=== PATIENT | male | born 1950 | race Caucasian/White ===

== ENCOUNTER 2022-08-03 07:41 | Inpatient (IN) | payer MEDICARE ==
[~2022-08-03] VITALS: Ht 188 cm; Wt 117.3 kg
--- NOTE | ~2022-08-03 | DS ---
[facility] [address], [place] [address] Draft ADMISSION DATE: 08/03/2022 DISCHARGE DATE: 08/05/2022 REASON FOR ADMISSION: Acute appendicitis with generalized peritonitis. HISTORY OF PRESENT ILLNESS: This 71-year-old white man has had 24 hours of increasing abdominal pain. He was evaluated in the emergency room by Dr. Shearer including clinical examination showing a "rigid abdomen" with tenderness focally in the right lower quadrant. A CT confirmed probable appendicitis. LABORATORY DATA: Normal though white count was 11.4. Creatinine was elevated at 1.36. COVID serology and flu serologies were negative. PERTINENT PHYSICAL EXAMINATION: GENERAL: Showed a large white man, BMI 33.2. HEENT: Mucous membranes were markedly dry. Trachea midline. CHEST: Clear. HEART: Regular. ABDOMEN: Nondistended. He had marked tenderness in the right lower quadrant, consistent with peritonitis. A CT scan showed findings suggestive of appendicitis with periappendiceal stranding and dilated inflamed appendix. HOSPITAL COURSE: He was given fluid resuscitation, IV antibiotics and taken to operation promptly. Found was severe generalized abdominal peritonitis with purulent discharge throughout the abdomen as well as perforated appendicitis. Laparoscopic peritoneal lavage was undertaken as well as appendectomy which was prolonged, complicated, and difficult. A foot drain was placed as well. Postoperatively, he was maintained on Levaquin and Flagyl orally administered. He had prompt improvement of his symptoms clinically. By day of discharge, the drain had been placed was clear and was removed. He will be discharged home with five days of antibiotics as outpatient. He is advised to lift no more than 20 pounds for the next two weeks. He will keep Steri-Strips on. He is permitted to shower tomorrow. DISCHARGE MEDICATIONS: PATIENT NAME: KAIA SERNA DISCHARGE SUMMARY DATE OF : 50 REPORT #: [id number] PHYSICIAN: FRANKLYN OWENS MD PCP: SANDY TORRE MD REPORT IS CONFIDENTIAL AND NOT TO BE RELEASED WITHOUT AUTHORIZATION [facility] [address], [place] [address] Draft 1. Levaquin 500 mg p.o. at bedtime #5. 2. Flagyl 250 mg p.o. t.i.d. #15. 3. Oxycodone Tylenol 7.5/325 one to two p.o. q.6 hours p.r.n. pain #6. 4. Tylenol plain 500 mg tablets two tablets p.o. q.6 hours as needed for lesser pain #60. He will continue with his usual medications including cyclobenzaprine, low-dose aspirin, vitamin C, niacin, tablet, colestipol, and tamsulosin. DISCHARGE DIAGNOSES: 1. Acute perforated appendicitis with generalized peritonitis, status post laparoscopic appendectomy, prolonged complicated difficult and placement of drain, August 03, 2022. 2. Obesity. 3. Benign prostatic hypertrophy symptoms. FOLLOWUP PLANS: He will return to see me in four weeks. If he has problems in the meantime, he will let me know. MD INGRIS Lugo/LANAL /[id number] cc: Dr. Shira Shearer Copies: ~ PATIENT NAME: KAIA SERNA Ponce DISCHARGE SUMMARY DATE OF : 50 REPORT #: [id number] PHYSICIAN: FRANKLYN OWENS MD PCP: SANDY TORRE MD REPORT IS CONFIDENTIAL AND NOT TO BE RELEASED WITHOUT AUTHORIZATION
--- NOTE | ~2022-08-03 | OR ---
[facility] [address], [place] [address] Draft DATE OF OPERATION: 08/03/2022 SURGEON: Franklyn Owens MD PREOPERATIVE DIAGNOSES: 1. Acute peritonitis with probable appendicitis. 2. Obesity. POSTOPERATIVE DIAGNOSES: 1. Generalized severe peritonitis with purulent discharge throughout abdomen. 2. Perforated appendicitis. 3. Obesity. PROCEDURES PERFORMED: 1. Laparoscopy with peritoneal lavage and placement of drain. 2. Laparoscopic appendectomy; prolonged, complicated, and difficult. ANESTHESIA: General endotracheal with Franklyn Guidry CRNA; and local 10 mL of 0.25% Marcaine with epinephrine. INDICATION FOR PROCEDURE: This 71-year-old white man, is a patient DrYas Torre and evaluated today by Dr. Frankie Painter, emergency room physician, with approximately 24 hours of severe abdominal pain, most markedly noted to be tender in the right lower quadrant. A CT scan was performed under the direction of Dr. Painter confirming a dilated inflamed appendix with periappendiceal stranding. There is no sign of free air proper. The patient has exquisite tenderness throughout, most dominantly at McBurney's point. He had been fluid resuscitated, given intravenous antibiotic cefoxitin, and now to undergo appendectomy, preferred by laparoscopic approach. The risks of bleeding, infection, need for open procedure, and need for other indicated procedures as well as risk of injury to other surrounding organs was reviewed in detail. He understands and wished to proceed. FINDINGS: Generalized peritonitis, was quite marked. He had purulent discharge in the right pericolic gutter. Ultimately, he was found to have perforated appendicitis at the distal third of the appendix bulbous and markedly inflamed with a discrete perforation in it. The more proximal appendix was normal. Cecum itself was secondarily inflamed. Small bowel loops were inflamed, but without sign of primary pathology themselves. The liver itself was encumbered with adhesions, which were taken down. There was surgical PATIENT NAME: KAIA SERNA OPERATIVE REPORT DATE OF : 50 REPORT #: [id number] PHYSICIAN: FRANKLYN OWENS MD PCP: CHARI TORRE MD REPORT IS CONFIDENTIAL AND NOT TO BE RELEASED WITHOUT AUTHORIZATION [facility] [address], [place] [address] Draft absence of the gallbladder and omental adhesions very densely adherent to the subhepatic space and obscuring completely the duodenum. There was no known perforated duodenal ulcer or other similar cause of his peritonitis. DESCRIPTION OF PROCEDURE: The patient was brought to the operating room and given a general endotracheal anesthetic. Preoperative antibiotic cefoxitin had been given. Sequential compression device stockings used and heparin subcutaneously administered. Pepcid had been administered as well. After satisfactory general endotracheal anesthesia, a Donohue catheter was placed (latex-free). A small 14-Icelandic catheter was used as he was considered to have benign prostatic hypertrophy. Position placement was undertaken at the request of the nurses. No impediment to passage of the catheter was noted. Clear yellow urine was noted. The abdomen was clipped and prepared with a chlorhexidine solution and draped sterilely. He had a circumumbilical incision from prior hernia repair. A supraumbilical incision was made and using an open Lawanda cannula technique, the abdomen was entered without problem. Intra-abdominal inspection showed generalized peritonitis with some bowel loops quite markedly inflamed and purulent discharge distributed most dominantly in the right pericolic gutter and elsewhere. A 12 mm port was placed in the midepigastric area based on local anatomic findings and the camera replaced to that site. It was quite unclear exactly where the appendix was or the cecum, the bowel loops were somewhat matted together. A 5 mm suprapubic port was placed and using 2-hand manipulation, small bowel loops were manipulated from the inflammatory exudate laterally. The table was placed in head-down and [id number] position and subsequently manipulated to a more of a head-up position. Irrigation was undertaken with the suction device allowing for clearance of purulent material, turbidity, and so forth. The cecum was ultimately identified. It was somewhat nondescript in its appearance with inflammatory change. Initial perception of the appendix somewhat lateral to the cecum was noted and as it turned out, it appeared to be a peritoneal fold, which was dissected free and clearly after bit of dissection was misapprehended as the appendix itself. Re-inspection of the small bowel in relation to the cecum ultimately defined what was the origin of the appendix at the coalescence of the teniae epiploica. This was quite clearly at that point the appendix. The more proximal portion though secondarily inflamed was not markedly dilated. Using blunt and electrocautery dissection, a window was created between the appendix and mesoappendix, and a stapling device applied across the base of the appendix flush with the cecum. Sequential elevation of the appendix and dissection of the mesoappendix was undertaken dominantly with electrocautery. A PATIENT NAME: KAIA SERNA OPERATIVE REPORT DATE OF : 50 REPORT #: [id number] PHYSICIAN: FRANKLYN OWENS MD PCP: CHARI TORRE MD REPORT IS CONFIDENTIAL AND NOT TO BE RELEASED WITHOUT AUTHORIZATION [address] [address] Draft dominant vascular pedicle was secured with an Endo JIMBO stapling device freeing the appendix entirely. A bulbous distal portion was noted and close inspection showed area of perforation, no doubt accounting for his generalized peritonitis. Irrigation was undertaken in the area. There was no sign of ongoing bleeding or other problem. Re-inspection of the retro or pericecal area was undertaken again showing no entry to the retroperitoneum proper. No likely injury to the surrounding structures. Given the extensive nature of peritonitis, mucopurulent exudate, and so forth, mindful of his symptoms only being significant for the past 24 hours, evaluation was undertaken for other competing etiologies. Inspection superiorly showed omental adhesions to the undersurface of the liver. These were taken down bluntly as much as could be filling the omentum in the gallbladder fossa. There was fusion of the omentum to the periduodenal area and quite unlikely to have a finding of duodenal perforation or anything of that sort. Further dissection of the dense adhesions in the area of the lesser sac was not pursued as there was no sign of acute inflammatory change and only chronic adhesive change. Irrigation was undertaken throughout the peritoneal cavity. Once the turbid fluid was completely clear, a 7 mm flat Dano drain was insinuated through the suprapubic port site and manipulated to the right pericolic gutter. It was secured to the skin with nylon suture. Excess irrigation fluid was suctioned free. The trocars were removed under direct visualization showing no sign of bleeding. The infraumbilical fascial incision was re-approximated with interrupted 0 Vicryl suture. The epigastric port was similarly re-approximated. 10 mL of 0.25% Marcaine with epinephrine was injected locally. The skin was closed with interrupted 3-0 Vicryl and Steri-Strips were applied. The patient tolerated the procedure well. It was prolonged, complicated, and difficult, lasting greater than 2 hours, which is probably 6 times longer than usual. MD INGRIS Lugo/JUAN JOSE /[id number] cc: Frankie Painter MD PATIENT NAME: KAIA SERNA OPERATIVE REPORT DATE OF : 50 REPORT #: [id number] PHYSICIAN: FRANKLYN OWENS MD PCP: CHARI TORRE MD REPORT IS CONFIDENTIAL AND NOT TO BE RELEASED WITHOUT AUTHORIZATION [facility] [address], [place] [address] Chari Torre Copies: FRANKIE PAINTER MD ~ PATIENT NAME: KAIA SERNA OPERATIVE REPORT DATE OF : 50 REPORT #: [id number] PHYSICIAN: FRANKLYN OWENS MD PCP: CHARI TORRE MD REPORT IS CONFIDENTIAL AND NOT TO BE RELEASED WITHOUT AUTHORIZATION
--- NOTE | ~2022-08-03 | HP ---
[facility] [address], [place] [address] Draft ADMISSION DATE: 08/03/2022 REASON FOR ADMISSION: Acute appendicitis. HISTORY OF PRESENT ILLNESS: This 71-year-old white man has had approximately 24 hours of significant increasing right lower abdominal pain. He was evaluated thoroughly by Dr. Painter this morning in the emergency room showing peritonitis and a "rigid abdomen" with tenderness focally in the right lower quadrant. Evaluation included a CT scan confirming probable appendicitis. Lab studies are reasonably normal with a white count of only 11.4, hematocrit is 47.6 with platelets of 173,000. Chem profile showed a creatinine elevated at 1.36, glucose 122. Liver enzymes are normal. Lipase normal at 55. COVID serology is still pending. Urinalysis is pending as well. PAST MEDICAL HISTORY: Includes prior history of cholecystectomy in 2013. He has undergone colonoscopy in the past as well. He underwent incisional hernia repair in the past as well. SOCIAL HISTORY: Lives in [place]. He is . He previously worked at the [employer]. REVIEW OF SYSTEMS: He denies any shortness of breath or chest pain. Does feel thirsty. He has no cough. He has had no blood per rectum or hematemesis. PHYSICAL EXAMINATION: GENERAL: Relatively large white man who does not look systemically toxic, though he is uncomfortable. HEENT: Mucous membranes are markedly dry. NECK: Trachea is midline. CHEST: Clear. HEART: Regular. ABDOMEN: Nondistended. He has marked tenderness in the right lower quadrant. EXTREMITIES: Show no clubbing, cyanosis, or edema. Review of the CT scan shows findings highly suggestive of appendicitis with periappendiceal stranding and inflammation of the somewhat dilated appendix. There is no sign of fecalith. ASSESSMENT: PATIENT NAME: KAIA SERNA HISTORY AND PHYSICAL DATE OF : 50 REPORT #: [id number] PHYSICIAN: FRANKLYN OWENS MD PCP: SANDY TORRE MD REPORT IS CONFIDENTIAL AND NOT TO BE RELEASED WITHOUT AUTHORIZATION [facility] [address], [place] [address] Draft The patient has probable appendicitis and I have recommended appendectomy. Nonoperative approaches are unsuitable in this situation in my opinion. The risk of bleeding, infection, need for open procedure instead of a laparoscopic one and missed diagnosis and failure of diagnosis and need for other indicated procedures was reviewed in detail. He understands and wishes to proceed. In the meantime, we will additionally fluid resuscitate, give antibiotics, pain medicine, and so on. MD INGRIS Lugo/MODL /[id number] cc: Dr. Shira Painter MD Copies: BERTRAM PAINTER MD ~ PATIENT NAME: KAIA SERNA HISTORY AND PHYSICAL DATE OF : 50 REPORT #: [id number] PHYSICIAN: FRANKLYN OWENS MD PCP: SANDY TORRE MD REPORT IS CONFIDENTIAL AND NOT TO BE RELEASED WITHOUT AUTHORIZATION
[~2022-08-03 07:41] MED LIST: LANSOPRAZOLE30 MG PO; PERCOCET 7.5-31 EACH PO; PIROXICAM20 MG PO; TERBINAFINE HC250 MG PO
[2022-08-03] MEDS ORDERED: CYCLOBENZAPRINE10 MG PO (08:00)
[2022-08-03] MEDS ORDERED: ADULT LOW DOSE81 MG PO (12:20)
[2022-08-03] MEDS ORDERED: VITAMIN C100 MG PO (12:20)
[2022-08-03] MEDS ORDERED: ZINC50 M2 PO (12:21)
[2022-08-03] MEDS ORDERED: NIACIN ER500 MG PO (12:21)
[2022-08-03] MEDS ORDERED: COLESTID1 GM PO (12:22)
--- NOTE | 2022-08-03 17:13 | NUR ---
08/03/22 1713 Lore Metz 1659- PT ARRIVES TO PACU NONAROUSABLE TO STIMULI WITH AN OPA IN PLACE. RESP EVEN AND TACHYPNEIC. PT IS IN A SINUS RHYTHM WITH PAC'S. GRID INSPECTOR AWARE AND STATES THE PT HAS BEEN IN THIS RHYTHM. OXYGEN SAT LOW TO MID 90'S ON 10L VIA MASK. SYSTOLIC BP IS IN THE 80'S. GRID INSPECTOR AWARE. GIVING MEDICATIONS. 1705- PT'S OXYGEN SAT READING IN THE LOW 90'S ON 10L VIA MASK. LUNG BAE ARE CLEAR THROUGHOUT. EAR OXIMETER PLACED. OXYGEN SAT READING IN THE HIGH 90'S ON 10L VIA MASK.
--- NOTE | 2022-08-03 18:30 | NUR ---
PT TO [facility] VIA BED ALERT AND ORIENTED, AWAKE ANSWERING QUESTIONS APPROPRIATELY. SCDS IN PLACE FRESH H20 PROVIDED, PT TOLERATING SIPS. PERSONAL ITEMS IN REACH PT WEARING GLASSES. ORIENTED TO ROOM AND CALL LIGHT. GRACIELA HAS SMALL AMOUNT OF SEROSANG FLUID, STERI STRIP ON INCISIONAL SITES INTACT, SMALL AMOUNT OF DRAINAGE PRESENT. PT WEARING 02 2LPM NC SATS 94% ON PULSE OX
--- NOTE | 2022-08-03 19:23 | NUR ---
PT TOLERATING CLEAR LIQUIDS REMAINS AWAKE AND ALERT. SATS MID 90'S 02 DC'D.
--- NOTE | 2022-08-03 19:51 | NUR ---
PATIENT RESTING IN BED, NO DISTRESS NOTED. PATIENT REPORTS HIS PAIN IS 3/10 INCISION SITES, WHICH HE REPORTS IS TOLERABLE. ABD INCISIONS ARE CLOSED, SC AMOUNT OF DRAINAGE NOTED TO MID LOWER GRACIELA SITE. GRACIELA DRAINING DILUTE PINK COLO DRAINAGE-NO BLOOD CLOTS NOTED. CONT CPOX INTACT, SP02 95% ON ROOM AIR. NO CURRENT NEEDS. IV SITE PATENT.
--- NOTE | 2022-08-03 19:56 | NUR ---
PHONE CALL FROM pt'S . TRANSFERRED PHONE CALL TO ROOM. DIRECTOR OF SAFETY AND SECURITY IN ROOM TO ASSIST pt.
--- NOTE | 2022-08-03 20:26 | NUR ---
ADMIN DILAUDID 0.5MG IV FOR REPORTED 5/10 ABDOMINAL PAIN.
--- NOTE | 2022-08-03 23:30 | NUR ---
PATIENT RESTING IN BED, EYES CLOSED, RESPIRATIONS EVEN AND NON LABORED. PATIENT IS ON ROOM AIR, SP02 94% PER CONT CPOX MONITOR. IV FLUIDS INFUSING PER PROVIDER ORDER, IV SITE PATENT TO RIGHT HAND. NO CURRENT NEEDS, PERSONAL SUPPLIES AND CALL LIGHT WITHIN REACH OF PATIENT.
--- NOTE | 2022-08-04 00:02 | NUR ---
ADMINISTERED TORADOL 30MG IV FOR REPORTED 5/10 ABD PAIN.
--- NOTE | 2022-08-04 03:00 | NUR ---
REPORT RECEIVED FROM BRAYDEN DEGROOT. PT RESTING IN BED WITH EYES CLOSED, HEAD OF BED ELEVATED TO 20 DEGREES. BED RAILS UP. CALL LIGHT WITHIN REACH. PT ALLOWED TO REST.
--- NOTE | 2022-08-04 04:20 | NUR ---
THIS RN TO ROOM TO CHECK ON PT. PT AWAKEN AND FIGITING WITH SHEETS. PT REPORTS HE HAS WET THE BED. PT UP TO SIT AT BEDSIDE AND USE URINAL. LINENS CHANGED. PT UP TO STAND AND IS VERY UNSTEADY ON FEET. ANABEL CARE DONE. PT ASSISTED WITH REPOSITIONING IN BED. BED RAILS UP. CALL LIGHT WITHIN REACH. PT ENCORUAGED TO REST. BED ALARM ON
--- NOTE | 2022-08-04 05:29 | NUR ---
THIS RN TO BED TO CHECK ON PT. LAB AT BEDSIDE DRAWING LABS. PT DENIES PAIN AND NASUEA. PT DENIES ADDITIONAL REQUESTS OR COMPLAINTS. OXGYEN SATURATIONS 96% ON ROOM AIR. CALL LIGHT WITHIN REACH. BED RAILS UP. BED ALARM ON.
--- NOTE | 2022-08-04 08:56 | NUR ---
MORNING ASSESSMENT AND MEDICATION DUE. PT RESTING IN BED ABOUT TO EAT BREAKFAST. PT ENCORUAGED TO GET UP TO CHAIR. PT UP TO CHAIR WITH STAND BY ASSIST. BMAT LEVEL 3 FOR LINE AND TUBE MANAGEMENT. PT STEADY ON FEET. PT REPORTS 0/10 ABDOMINAL PAIN AND 4/10 HEADACHE. PT REQUESTS PAIN MEDICATION FOR HEADACHE, SEE MAR FOR MEDICATION GIVEN. PT ALERT AND ORIENTED TO ALL. LUNG SOUNDS CLEAR. HEART TONES REGULAR. +1 EDEMA NOTED TO LEFT LOWER EXTREMITY. 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 ABDOME FIRM ON LEFT SIDE, TENDER TO TOUCH IN PLACES. HYPOACTIVE BOWEL TONES HEARD. LARPAROSCOPIC SITES WNL. STERI STRIPS INTACT. GRACIELA DRAIN DRAINING SEROUSANGUINOUS FLUID, EMPITED OF 70ML. NO NEW DRAINAGE NOTED FROM LAPAROSCOPIC SITES. PT EATING CLEAR LIQUIDS, TOLERATING WELL. NO ADDIITONAL REQUESTS OR COMPLAINTS. CALL LIGHT WITHIN REACH.
--- NOTE | 2022-08-04 09:55 | NUR ---
HOURLY ROUNDING, PT CALL LIGHT ON. PT REQUESTS ASSISTANCE UP TO RESTROOM. PT VOIDS 250ML WITH OUT ISSUE. STAND BY ASSIST UP TO RESTROOM FOR LINE AND TUBE MANAGEMENT. ANABEL CARE PER PT. PTS ESHA TO BEDSIDE, UPDATED ON PT STATUS AND PLAN OF CARE. PT VISITNG WITH AND WATCHING TV. PT REPORTS HEADACHE HAS RESOLVED. PT DENIES ABDOMINAL PAIN. NO ADDITIONAL REQUESTS OR COMPLAINTS. CALL LIGHT WITHIN REACH.
--- NOTE | 2022-08-04 10:30 | NUR ---
THIS RN TO ROOM TO CHECK ON PT. PT REMAINS UP TO CHAIR, VISITING WITH FAMILY. QUESTIONS ANSWERED. PLAN OF CARE REVIEWED. PT CONTINUES TO DENY PAIN AND NAUSEA. NO ADDITIONAL REQUESTS OR COMPLAINTS. CALL LIGHT WITHIN REACH.
--- NOTE | 2022-08-04 11:37 | NUR ---
THIS RN TO ROOM TO CHECK ON PT. PT DENIES PAIN AND NAUSEA. PT ENCORUAGED TO AMBULATE. IV SALINE LOCKED FOR AMBULATION. PT UP TO AMBULATE WITH STAND BY ASSIST AND CANE X1 LAP IN [place]. PTS REPORTS PT SEEMS OUT OF BREATH WITH ACITIVTY. PTS ALSO STATES PT'S HANDS SEEMS SWOLLEN. PT REPORTS 5/10 PAIN IN ABDOMEN AFTER AMBLUATION AND 5/[address] OWENS UPDATED ON PTS STATUS AND PAIN. NEW ORDERS PLACED. NO ADDITIONAL REQUESTS OR COMPLAINTS. PT REMAINS UP TO CHAIR. CALL LIGHT WITHIN REACH.
--- NOTE | 2022-08-04 11:42 | NUR ---
UP IN CHAIR VISITING WITH . THE PLAN IS PATIENT WILL GO HOME WHEN DISCHARED.
--- NOTE | 2022-08-04 12:25 | NUR ---
MEDICATION DUE. PT CONTINUES TO REPORT 5/10 PAIN IN ABDOMEN, SEE MAR FOR MEDICAITN GIVEN. LUNCH DELIVERED TO PT. PT TOELRATING CLEAR LIQUID DIET WELL. NO ADDITONAL REQUESTS OR COMPLAINTS. CPOX DC'D OXYGEN SATURATIONS IS 96-100% ON ROOM AIR CONSISTANTLY. CALL LIGHT WITHIN REACH.
--- NOTE | 2022-08-04 13:31 | NUR ---
AFTERNOON ASSESSMENT DUE. PT REMAINS UP TO CHAIR. FINISHED WITH CLEAR LIQUID LUNCH. PT TOELARTING WELL WITH NO NAUSEA. PT ABDOMINAL PAIN HAS IMPROVED, PT RATES PAIN AT 2/10 AND DENIES NEED FOR ADDITIONAL PAIN MEDCIATION. PREVIOUS VERBAL ORDERS FROM MD TO SALINE LOCK IV, IV LEFT SALINE LOCKED SINCE AMBULATION, REMAINS WNL. PT REPORTS HE IS PASSING GAS. ADOMEN MORE SOFT THAN THIS MORNINGS ASSESSMENT. PT REPORTS ABDOMEN REMAINS DISTENDED. BOWEL TONES TYMPANIC IN LOWER QUADRANTS HYPO ACTIVE IN UPPER QUADRANTS. LAPAROSCOPIC SITES REMAIN WNL. STERI STRIPS INTACT. NO NEW DRAINAGE NOTED. GRACIELA DRAIN EMPTIED OF 20ML SEROUSANGUINOUS DRAINAGE. PT TAUGHT HOW TO EMPTY GRACIELA DRAIN, DEMONSTARTES UNDERSTANDING WITH ASSISTANCE FROM THIS RN. +1 PITTING EDEMA CONTINUES TO BLE. PT REPORTS 'MY LEGS ARE ALWAYS SWOLLEN, PT ADVISED TO FOLLOW UP WITHHIS PRIMARY CARE REGADING THIS. LUNG SOUNDS CLEAR. NO ADDITIONAL REQUESTS OR COMPLAINTS. PT REMAINS UP TO CHAIR. CALL LIGHT WITHIN REACH.
--- NOTE | 2022-08-04 14:40 | NUR ---
THIS RNTO ROOM TO CHECK ON PT. PT UP TO CHAIR WATCHING TV. PT DENIES NASUEA. PT REPORTS 2/10 ABDOMINAL PAIN THAT IS WELL CONTROLLED. PT DENIES ADDITIONAL REQUESTS OR COMPLAINTS. CALL LIGHT WITHIN REACH. PT REMAINS UP TO CHAIR.
--- NOTE | 2022-08-04 16:08 | NUR ---
MED REC COMPLETE
--- NOTE | 2022-08-04 16:10 | NUR ---
THIS RN TO ROOM TO CHECK ON PT. PT REPORTS 4/10 PAIN THAT IS WELL CONTROLLED. PT ENCROURAGED TO AMBULATE. PT UP TO AMBULATE DOWN MAIN HALLWAY AND X1 LAP IN UNIT. PT REPORTS INCREASED PAIN TO 8/10 WITH AMBULATION AND REQUESTS ADDITIONAL PAIN MEDICATION (SEE MAR FOR MEDICATION GIVEN). PT DENIES NAUSEA. PT REPORTS CONTINUES TO PASS GAS. PT UP TO RESTROOM AND VOIDS 250ML CLEAR YELLOW URINE. PT BACK TO CHAIR. NO ADDITIONAL REQUESTS OR COMPLAINTS. CALL LIGHT WITHIN REACH.
--- NOTE | 2022-08-04 16:51 | NUR ---
THIS RN TO ROOM TO CHECK ON PT. PT UP TO CHAIR. PT REPORTS PAIN HAS IMPROVED TO ABDOMEN, NOW 3/10. PT DENIES NAUSEA AFTER SNACK. DR. OWENS CALLED AND UPDATED AND CLAUDIA GIVEN TO ADVANCE PTS DIET TO REGULAR. DIET ADVANCED AND DINNER ORDER PLACED. NO ADDITIONAL REQUESTS OR COMPLAINTS. CALL LIGHT WITHIN REACH.
--- NOTE | 2022-08-04 16:55 | NUR ---
PT POST OP DAY 1 AFTER LAPAROSCOPIC APPY. PT UP WITH STAND BY ASSIST AND CANE TO CHAIR AND TO AMBULATE IN HALLS THIS SHIFT. PT ADVANCED TO REGULAR DIET AND TOELRATING WITH GOOD APPITTIE AND NO NAUSEA. ABDOMIN REMAINS MILDLY DISTENDED, BOWEL TONES HYPOACTIVE. STERI STRIPS INTACT TO LAP SITES X2 WITH NO NEW DRAINAGE NOTED. GRACIELA DRAIN TO LOWER MID ABDOMEN DRAINING SEROUS ANGUINOUS FLUID, DRESSING UNCHANGED. TOTAL OF 90ML DRAINAGE SO FAR THIS SHIFT. GRACIELA DRAIN EDUCATION DONE THIS SHIFT. PT DEMONSRATES EMPTYING OF DRAIN. PRN PAIN MEDICATION GIVEN FOR 2-8/10 ABDOMINAL PAIN THIS SHIFT. PT VOIDING QUANITTY SUFFICIENT. PT USES CALL LIGHT AND MAKES NEEDS KNOWN.
--- NOTE | 2022-08-04 17:18 | NUR ---
PTS GURWINDER ON THE PHONE AND REQUESTING UPDATE. GURWINDER UPDATED PER PT REQUEST. GURWINDER VERBALIZES UNDERSTANDING AND STATES HER QUESTIONS HAVE BEEN ANSWERED. MEDIATION GIVEN. PT REMAINS UP TO CHAIR, WATCHING TV. NO ADDITONAL REQUESTS OR COMPLAINTS. CALL LIGHT WITHIN REACH.
[2022-08-04] MEDS ORDERED: FLOMAX0.4 MG PO (17:41)
--- NOTE | 2022-08-04 18:56 | NUR ---
THIS RN TO ROOM TO CHECK ON PT. PT UP TO RESTROOM WITH STAND BY ASSIST TO VOID AND THEN TO BED. PT REPORTS 3/10 PAIN TO ABDOMEN THAT IS TOELRABLE. ICE WATER REFILLED. PT DENIES ADDITONAL REQUESTS OR COMPLAINTS. CALL LIGHT WIHTIN REACH. BED RAILS UP.
--- NOTE | 2022-08-04 20:11 | NUR ---
PATIENT RESTING BACK IN BED. BEDSIDE REPORT FROM DAYSHIFT NURSE. PATIENT VERBALIZES PAIN WELL CONTROLLED. TOLERATING REG DIET. ABDOMEN ROUND, GRACIELA PUTTING OUT SMALL AMOUNTS OF SEROSANGUINIOUS DRAIANAGE. LAP SITES HAVE STERI STRIPS IN PLACE, NO NEW DRAINAGE. NO OTHER NEEDS AT THIS TIME.
--- NOTE | 2022-08-04 20:37 | NUR ---
DR. OWENS ROUNDJOSE ON PATIENT. ANSWERED PATIENT QUESTIONS AND CONCERNS. POSSIBLE PLAN TO DISCHARGE HOME TOMORROW.
--- NOTE | 2022-08-04 21:12 | NUR ---
CALL LIGHT ANSWERED. pt ACCIDENTLY PULLED IV, CATHETER TIP INTACT. BLOOD CLEANED IN ROOM. COBAN AND GAUZE APPLIED TO RIGHT HAND. EDUCATION PROVIDED.
--- NOTE | 2022-08-05 02:14 | NUR ---
CALL LIGHT ANSWERED. pt EMPTIED GRACIELA DRAIN, 50 MLS SANGUINOUS FLUID. URINAL EMPTIED. BACK IN BED. NO ADDITIONAL REQUESTS.
--- NOTE | 2022-08-05 05:49 | NUR ---
PATIENT RESTED WELL THROUGHOUT NIGHT. INDEPENDANT TO BATHROOM, CALLS APPROPRIATLEY. DEMONSTRATES TO SELF EMPTIED GRACIELA DRAIN AND RECORD OUTPUT. PATIENT VERBALIZES PAIN WELL CONTROLLED, "JUST A LITTLE SORE LAYING IN THE BED".
--- NOTE | 2022-08-05 07:30 | NUR ---
bedside report from Ebony peoples, pt has no iv site - sitting up at side of bed, denies needs - LIBBY drain was emptied by azael rn, sang. milky red fluid noted. libby sites x3 wnl, call light in reach - pain wnl.
--- NOTE | 2022-08-05 11:34 | NUR ---
PT UP IN CHAIR - PO ABX GIVEN, DENIES NEED FOR PAIN MEDS, CALL LIGHT IN REACH.
[2022-08-05] MEDS ORDERED: LEVOFLOXACIN500 MG PO (12:25)
[2022-08-05] MEDS ORDERED: METRONIDAZOLE250 MG PO (12:26)
[2022-08-05] MEDS ORDERED: OXYCODON-ACETA1 EAC2 PO (12:26)
[2022-08-05] MEDS ORDERED: ACETAMINOPHEN500 MG PO (12:26)
--- NOTE | 2022-08-05 13:07 | NUR ---
PT DC INST GIVEN TO PT AND - RX GIVEN, NO IV. PRINTED DC INST GIVEN TO BOTH.
== END 2022-08-05 13:05 | disposition home or self-care (01) | DRG 343 ==
LOC: ED 07:41 → MS 11:05
PROVIDERS: ADMIT Surgery; ATTEND Surgery
PROC: 0DTJ4ZZ Resection of Appendix, Percutaneous Endoscopic Approach (ICD-10-PCS; principal; 2022-08-03 13:30)
DX: K35.20 Acute appendicitis with generalized peritonitis, without abscess (principal); Z20.822 Contact with and (suspected) exposure to COVID-19; E66.9 Obesity, unspecified; N40.0 Benign prostatic hyperplasia without lower urinary tract symptoms; Z68.32 Body mass index [BMI] 32.0-32.9, adult; Z87.891 Personal history of nicotine dependence; Z90.49 Acquired absence of other specified parts of digestive tract; Z98.890 Other specified postprocedural states; Z88.0 Allergy status to penicillin; Z88.5 Allergy status to narcotic agent; Z88.6 Allergy status to analgesic agent; Z88.8 Allergy status to other drugs, medicaments and biological substances; Z91.040 Latex allergy status; Z79.899 Other long term (current) drug therapy
CPT/HCPCS: 36415; 74177; 80048; 80053; 81003; 83690; 85025; 94760; C9803; J0131; J0330; J0694; J1100; J1160; J1170; J1650; J1885; J2001; J2370; J2405; J2704; J3010; J7030; J7121; Q9967; U0003

== ENCOUNTER 2024-03-10 08:30 | Day surgery (SDC) | payer OTHER ==
[2024-02-29 09:44] VITALS: BP 134/80
[~2024-03-10] VITALS: Ht 188 cm; Wt 108.6 kg
[~2024-03-10 08:30] MED LIST changes: +ACETAMINOPHEN500 MG PO; +ADULT LOW DOSE81 MG PO; +CEFAZOLIN SODIUM 2 GM/20 ML SYR IV SCH; +COLESTID1 GM PO; +CYCLOBENZAPRINE10 MG PO; +FLOMAX0.4 MG PO; +GNP B-COMPLEX1 EACH PO; +HEParin SOD (PORCINE) 5,000 UNIT/0.5 ML SYR SUB-Q SCH; +IBLOOD GLUCOSE TEST STRIP 1 EA TEST VI PRN; +LACTATED RINGER'S 1,000 ML IV SCH; +LEVOFLOXACIN500 MG PO; +LIDOCAINE HCL 1% 5 ML SDV INJ ONE; +METRONIDAZOLE250 MG PO; +NIACIN ER500 MG PO; +OXYCODON-ACETA1 EAC2 PO; +TURMERIC500 M3 PO; +VITAMIN C100 MG PO; +ZINC50 M2 PO
[2024-03-10] MEDS ORDERED: BUPIVACAINE HCL 0.25% 50 ML MDV ONE (09:28)
[2024-03-10] MEDS ORDERED: LIDOCAINE HCL 1% 30 ML SDV ONE (09:28)
[2024-03-10] MEDS ORDERED: dexmedeTOMIDine HCl 200 MCG/2 ML VIAL ONE (09:37)
[2024-03-10] MEDS ORDERED: LIDOCAINE HCL 2% 5 ML SDV ONE (09:37)
[2024-03-10] MEDS ORDERED: KETOROLAC TROMETHAMINE 30 MG/ML VIAL ONE (09:37)
[2024-03-10] MEDS ORDERED: KETAMINE in NS 50 MG/5 ML SYR ONE (09:37)
[2024-03-10] MEDS ORDERED: propofoL 200 MG/20 ML VIAL ONE (09:37)
[2024-03-10] MEDS ORDERED: ondansetron HCL 4 MG/2 ML VIAL ONE (09:37)
[2024-03-10] MEDS ORDERED: SODIUM CHLORIDE 0.9% 40 ML IV ONE (09:37)
[2024-03-10] MEDS ORDERED: ROCURONIUM BROMIDE 50 MG/5 ML SYR ONE (09:37)
[2024-03-10] MEDS ORDERED: ACETAMINOPHEN 1,000 MG/100 ML VIAL ONE (09:37)
[2024-03-10] MEDS ORDERED: DEXAMETHASONE SOD PHOS 4 MG/ML VIAL ONE ×2 (09:37→09:42)
[2024-03-10] MEDS ORDERED: MAGNESIUM SULFATE 1 GM/2 ML VIAL ONE (09:37)
[2024-03-10] MEDS ORDERED: ESMOLOL HCL 100 MG/10 ML VIAL IV ONE (09:39)
[2024-03-10] MEDS ORDERED: Ropivacaine HCl 0.5% 30 ML VIAL ONE (09:42)
[2024-03-10] MEDS ORDERED: SODIUM CHLORIDE 0.9% 20 ML IV ONE ×2 (09:42→09:56)
[2024-03-10] MEDS ORDERED: ePHEDrine sulfate 50 MG/ML AMP ONE (10:05)
[2024-03-10] MEDS ORDERED: SUGAMMADEX SODIUM 200 MG/2 ML ML ONE (10:35)
--- NOTE | 2024-03-10 14:25 | NUR ---
03/10/24 1425 Lillian Storey SEE DOWN TIME PAPER CHARTING
--- NOTE | 2024-03-10 17:26 | OR ---
[facility] [address] [place], [place] [address] Signed DATE OF OPERATION: 03/10/2024 SURGEON: Carson Nails MD PREOPERATIVE DIAGNOSIS: Reducible supraumbilical incisional hernia (12 mm). POSTOPERATIVE DIAGNOSIS: Reducible supraumbilical incisional hernia (12 mm). PROCEDURE: Primary supraumbilical incisional herniorrhaphy with intra-abdominal 6.4 cm round Ventralex mesh. ESTIMATED BLOOD LOSS: None. INDICATIONS: Adriel is a 73-year-old gentleman, asked to see me for a reducible symptomatic supraumbilical incisional hernia. He describes a laparoscopic cholecystectomy in 2010 and a laparoscopic appendectomy in 2021. He now has a painful but reducible bulge just above the umbilicus. He had been to his primary care provider. A CT scan of the abdomen and pelvis confirmed a small incisional hernia just above the umbilicus. It was containing some small intestine. He continues to exercise to stay in shape and work in the yard and so forth. He said the hernia was symptomatic and bother him quite a bit. He was therefore asked to see me to have it repaired as a local general surgeon. In the office, I gave Adriel a pamphlet on hernias. We reviewed it page by page. He understands the difference between a primary suture repair and a mesh repair of this hernia. We reviewed the expected intraop and postop course. There is risk including, but not limited to bleeding, infection, scarring, change in contour of the skin, damage to bowel, infection of mesh requiring removal, recurrent hernias and chronic pain. He had expressed understanding and wished to proceed. DESCRIPTION OF PROCEDURE: I met with Adriel and his in our preop area. We all agreed on the area above the umbilicus and we circled that and marked it appropriately. After this, Adriel was taken into the operating room and placed in the supine position under general endotracheal tube anesthesia. He said he is allergic to narcotics and thought he was just going to use ibuprofen postoperatively. Therefore, our anesthesia provider provided bilateral ultrasound-guided TAP blocks. After this, he was prepped and draped in the usual Electronically Signed By: CARSON NAILS MD 03/10/24 1726 PATIENT NAME: ADRIEL SERNA OPERATIVE REPORT DATE OF : 50 REPORT #: [id number] PHYSICIAN: CARSON NAILS MD PCP: CHARI TORRE MD REPORT IS CONFIDENTIAL AND NOT TO BE RELEASED WITHOUT AUTHORIZATION [facility] [address], [place] [address] Signed sterile fashion. He was on preoperative antibiotics along with subcutaneous heparin. SCDs have been utilized. We developed his supraumbilical midline incision once again and we carried it down around the hernia bluntly and with the cautery. We excised the hernia sac completely and passed it off the field. He had a 12 mm fascial defect consistent with a trocar site. There was no bowel or fat adhered underneath. We chose our 6.4 cm round Ventralex mesh and we placed it in the abdomen and brought up flushed against the posterior abdominal wall. We closed the fascial defect transversely with interrupted #1 Prolene [id number] sutures. Two passes of the suture went through the tab on the mesh to help hold it in place. The tab was cut, flushed with the abdominal wall and discarded. Additional local anesthetic was injected to the abdominal wall along with subcutaneous tissues. The wound was irrigated and suctioned out until clear. We closed the dermis with interrupted 3-0 subcuticular Monocryl sutures. Skin edges were reapproximated with a running 5-0 fast absorbing plain gut suture. Dry gauze and tape was then applied. Adriel was then awakened from his anesthesia, extubated in the OR, and taken to recovery room in stable condition. Carson Nails MD ALB/MODL /[id number] cc: Dr. Chari Torre [facility] Carson Nails MD Copies: CARSON NAILS MD ~ Electronically Signed By: CARSON NAILS MD 03/10/24 1726 PATIENT NAME: ADRIEL SERNA [facility] OPERATIVE REPORT DATE OF : 50 REPORT #: [id number] PHYSICIAN: CARSON NAILS MD PCP: CHARI TORRE MD REPORT IS CONFIDENTIAL AND NOT TO BE RELEASED WITHOUT AUTHORIZATION
== END 2024-03-10 13:30 | disposition home or self-care (01) ==
LOC: DS 08:30
PROVIDERS: ATTEND Colon & Rectal Surgery
PROC: 0WQF0ZZ Repair Abdominal Wall, Open Approach (ICD-10-PCS; principal; 2024-03-10 09:50)
DX: K43.2 Incisional hernia without obstruction or gangrene (principal); N40.0 Benign prostatic hyperplasia without lower urinary tract symptoms; E78.2 Mixed hyperlipidemia; E66.9 Obesity, unspecified; Z68.32 Body mass index [BMI] 32.0-32.9, adult; Z79.899 Other long term (current) drug therapy; Z79.82 Long term (current) use of aspirin; Z88.0 Allergy status to penicillin; Z88.5 Allergy status to narcotic agent; Z88.8 Allergy status to other drugs, medicaments and biological substances; Z91.040 Latex allergy status
CPT/HCPCS: 00750; 76942; C1781; J0131; J1100; J1885; J2001; J2405; J2704; J2795; J3475; J3490

== ENCOUNTER 2025-05-18 16:22 | Emergency (ER) | payer OTHER ==
[~2025-05-18] VITALS: Ht 188 cm; Wt 150.0 kg
[~2025-05-18 16:22] MED LIST changes: -CEFAZOLIN SODIUM 2 GM/20 ML SYR IV SCH; -HEParin SOD (PORCINE) 5,000 UNIT/0.5 ML SYR SUB-Q SCH; -IBLOOD GLUCOSE TEST STRIP 1 EA TEST VI PRN; -LACTATED RINGER'S 1,000 ML IV SCH; -LIDOCAINE HCL 1% 5 ML SDV INJ ONE
[2025-05-18 19:45] VITALS: BP 136/70
== END 2025-05-18 19:49 | disposition home or self-care (01) ==
LOC: ED 16:22
DX: S81.811A Laceration without foreign body, right lower leg, initial encounter (principal); E78.00 Pure hypercholesterolemia, unspecified; Z87.891 Personal history of nicotine dependence; Z88.0 Allergy status to penicillin; Z91.040 Latex allergy status; Z88.5 Allergy status to narcotic agent; Z88.8 Allergy status to other drugs, medicaments and biological substances; Z79.82 Long term (current) use of aspirin; Z79.899 Other long term (current) drug therapy; W18.49XA Other slipping, tripping and stumbling without falling, initial encounter
CPT/HCPCS: 12002; 99282